=== PATIENT | male | born 1990 | race Caucasian/White ===

== ENCOUNTER 2022-04-10 14:20 | Emergency (ER) | payer OTHER ==
[~2022-04-10] VITALS: Ht 193 cm; Wt 84.0 kg
[2022-04-10] MEDS ORDERED: acetaminophen 325mg tablet PO ONE (14:30)
[2022-04-10] MEDS ORDERED: ondansetron 4mg rapidly disintigrating tab PO ONE (14:30)
--- NOTE | 2022-04-10 14:49 | NUR ---
Patient to CT with PD. ginna CEE
[2022-04-10 15:04] VITALS: BP 112/74
--- NOTE | 2022-04-10 15:05 | NUR ---
Return from CT @9341 with PD.
--- NOTE | 2022-04-10 15:43 | NUR ---
Patient removed self from vitals monitor. Verbalized feeling better, advised to keep them on, patient refused.
== END 2022-04-10 16:12 | disposition home or self-care (01) ==
LOC: ER 14:21
DX: S05.91XA Unspecified injury of right eye and orbit, initial encounter (principal); W22.8XXA Striking against or struck by other objects, initial encounter; Y93.89 Activity, other specified; Y92.89 Other specified places as the place of occurrence of the external cause; Y99.8 Other external cause status
CPT/HCPCS: 70450; 70486; 99284

== ENCOUNTER 2023-01-06 11:03 | Emergency (ER) | payer OTHER ==
[~2023-01-06] VITALS: Ht 193 cm; Wt 90.0 kg
[2023-01-06 11:11] VITALS: BP 158/87; PULSE 85; RESP 18; TEMP 98; O2SAT 98
== END 2023-01-06 12:15 | disposition home or self-care (01) ==
LOC: ER 11:04
DX: S60.011A Contusion of right thumb without damage to nail, initial encounter (principal); X58.XXXA Exposure to other specified factors, initial encounter; Y93.89 Activity, other specified; Y92.89 Other specified places as the place of occurrence of the external cause; Y99.8 Other external cause status
CPT/HCPCS: 73130; 99283

== ENCOUNTER 2024-06-14 18:44 | Emergency (ER) | payer OTHER | END 2024-06-14 19:12 | disposition left against medical advice (07) | LOC: ER 18:45 | DX: Z00.8 Encounter for other general examination (principal); Z53.21 Procedure and treatment not carried out due to patient leaving prior to being seen by health care provider ==